=== PATIENT | male | born 1960 | race African-American/Black ===

== ENCOUNTER 2016-10-20 07:01 | Day surgery (SDC) | payer MEDICARE, MEDICAID ==
[~2016-10-20] VITALS: Ht 175.3 cm; Wt 101.2 kg
[~2016-10-20 07:01] MED LIST: ASPI81CH4 PO; CITA10TA59 PO; DIVA500T53 PO; DONE10TA17 PO; GABA-498 PO; INSLANTI SC; INSU100I2 SC; OXYB5SYP4 PO
[2016-10-20] MEDS ORDERED: LIDOCAINE 2%HCL (LOCAL ANESTH.) INJ 20ML MDV ONE (07:08)
[2016-10-20] MEDS ORDERED: IODIXANOL 320MG/ML 100ML BTL IV ONE (07:08)
[2016-10-20] MEDS ORDERED: MIDAZOLAM HCL 1MG/1ML-2 ML VIAL ONE (07:54)
[2016-10-20] MEDS ORDERED: fentaNYL CITRATE 100 MCG/2 ML VL ONE (07:54)
[2016-10-20] MEDS ORDERED: VERAPAMIL 2.5MG/ML INJ 2ML VIAL IV ONE (07:55)
[2016-10-20] MEDS ORDERED: SODIUM CHL 0.9% 0 ML ONE (07:55)
[2016-10-20] MEDS ORDERED: ANGIOMAX 250 MG VIAL IV ONE (07:55)
[2016-10-20] MEDS ORDERED: EPTIFIBATIDE INJ (2MG/ML) 10ML VIAL IV ONE (07:56)
[2016-10-20] MEDS ORDERED: HEPARIN SODIUM (PORCINE) 5000 UNITS/ML 1ML VIAL ONE ×2 (08:30)
[2016-10-20] MEDS ORDERED: ACETAMINOPHEN 325 MG TAB PO ONE ×2 (09:25→09:30)
[2016-10-20] MEDS ORDERED: hydrALAZINE HCL 20 MG/ML VL IV ONE (10:15)
== END 2016-10-20 11:36 | disposition home or self-care (01) ==
LOC: CATH 07:01
PROVIDERS: ATTEND Internal Medicine
DX: I25.10 Atherosclerotic heart disease of native coronary artery without angina pectoris (principal); G47.30 Sleep apnea, unspecified; E11.9 Type 2 diabetes mellitus without complications; N18.9 Chronic kidney disease, unspecified; Z95.0 Presence of cardiac pacemaker
CPT/HCPCS: 93458; C1769; J1644; J2250; J3010; J7030; Q9967

== ENCOUNTER 2019-02-02 10:39 | Emergency (ER) | payer MEDICARE, MEDICAID ==
[~2019-02-02] VITALS: Ht 180.3 cm; Wt 95.3 kg
[~2019-02-02 10:39] MED LIST changes: +CHOL20007 OR; +CITA10TA70 PO; +DONE10TA40 PO; -GABA-498 PO; +GABA100C9 PO; +GABA400C11 PO; +INSU1INJ13 SC; +INSUINJ18 SC; +OXYB15TA12 PO; +PRAV20TA3 PO; +TOPI25CA5 PO
[2019-02-02 11:29] LABS: Basophils # (auto) 0 uL; Eosinophils # (auto) 0.3 uL; Eosinophils % (auto) 5.9 % (0.0-7.0); Hematocrit 43.7 % (41.0-53.0); Hemoglobin 14.5 g/dL (13.5-17.5); Lymphocytes # (auto) 1.1 uL; Mean Corpuscular Hemoglobin 28.2 pg (28.0-32.0); Mean Corpuscular Hgb Conc. 33.2 g/dL (32.0-36.0); Mean Corpuscular Volume 84.9 fL (80.0-100.0); Monocytes # (auto) 0.6 uL; Monocytes % (auto) 11.9 % (0.0-12.0); Neutrophils # (auto) 2.9 uL; Neutrophils % (auto) 59.2 % (37.0-80.0); Nucleated Red Blood Cells % 0.1 %; Platelet Count (auto) 156 10^3/uL (140-450); Red Blood Cells 5.15 10^6/uL (4.5-5.90)
[2019-02-02] MEDS ORDERED: ONDANSETRON HCL 4 MG/2 ML VIAL IV ONE (11:45)
[2019-02-02] MEDS ORDERED: HYDROmorphone HCL 2 MG/ML VL IV ONE (11:45)
[2019-02-02 12:00] LABS: Alanine Aminotransferase 17 U/L (16-61); Albumin 3.3 g/dL (3.4-5.0); Anion Gap 6 (5-15); Aspartate Aminotransferase 10 U/L (15-37); BUN/Creatinine Ratio 11.9; Blood Urea Nitrogen 15 mg/dL (7-18); Carbon Dioxide 27 mmol/L (21-32); Chloride 106 mmol/L (98-107); GFR African American 75 mL/min; GFR Non-African American 62 mL/min; Glucose 161 mg/dL (74-106); Magnesium 2.1 mg/dL (1.6-2.6); Potassium 3.9 mmol/L (3.5-5.1); Sodium 139 mmol/L (136-145)
[2019-02-02 12:05] LABS: Alkaline Phosphatase 109 U/L (45-117); Bilirubin, Total 0.4 mg/dL (0.2-1.0); Total Protein 7.6 g/dL (6.4-8.2)
[2019-02-02 12:22] LABS: INR 1.03 (0.9-1.15); Partial Thromboplastin Time 25.4 sec (23.64-32.05)
[2019-02-02 12:30] VITALS: BP 107/72
== END 2019-02-02 14:29 | disposition home or self-care (01) ==
LOC: ER 10:39 → EDBD 10:39 → ER 14:29
DX: G43.909 Migraine, unspecified, not intractable, without status migrainosus (principal); E11.65 Type 2 diabetes mellitus with hyperglycemia; Z95.0 Presence of cardiac pacemaker
CPT/HCPCS: 36415; 70450; 80053; 83735; 84484; 85025; 85610; 85730; 96374; 96375; 99284; J1170; J2405

== ENCOUNTER 2019-08-02 18:27 | Emergency (ER) | payer MEDICARE, MEDICAID ==
[~2019-08-02] VITALS: Ht 175.3 cm; Wt 99.8 kg
[2019-08-02 18:48] VITALS: BP 126/83
== END 2019-08-02 22:43 | disposition left against medical advice (07) ==
LOC: EDUNIT# 18:27 → EDBD 18:27 → ER 18:32
DX: E16.2 Hypoglycemia, unspecified (principal); Z53.21 Procedure and treatment not carried out due to patient leaving prior to being seen by health care provider

== ENCOUNTER 2023-03-29 22:09 | Inpatient (IN) | payer MEDICARE, MEDICAID ==
[~2023-03-29] VITALS: Ht 175.3 cm; Wt 107.0 kg
[~2023-03-29 22:09] MED LIST changes: -ASPI81CH4 PO; +ASPI81CH74 PO; +CITA10TA5 PO; -CITA10TA59 PO; -CITA10TA70 PO; +CITA10TA8 PO; +DIVA500T3 PO; -DIVA500T53 PO; -DONE10TA17 PO; -DONE10TA40 PO; +DONE10TA9 PO; +DONE1TAB88 PO; +GABA-1251 PO; +GABA-1308 PO; -GABA100C9 PO; -GABA400C11 PO
[2023-03-29 22:48] LABS: Basophils # (auto) 0 10 ^3/uL (0-0.2); Basophils % (auto) 0.5 % (0.0-2.0); Eosinophils # (auto) 0.1 10 ^3/uL (0-0.8); Eosinophils % (auto) 1.9 % (0.0-7.0); Hematocrit 40.9 % (41.0-53.0); Hemoglobin 13.4 g/dL (13.5-17.5); Lymphocytes # (auto) 1.1 10 ^3/uL (0.4-5.4); Lymphocytes % (auto) 21.9 % (10.0-50.0); Mean Corpuscular Hemoglobin 27.8 pg (28.0-32.0); Mean Corpuscular Hgb Conc. 32.8 g/dL (32.0-36.0); Mean Corpuscular Volume 84.6 fL (80.0-100.0); Monocytes # (auto) 0.7 10 ^3/uL (0-1.3); Neutrophils # (auto) 3.3 10 ^3/uL (1.6-8.6); Neutrophils % (auto) 62.7 % (37.0-80.0); Nucleated Red Blood Cells % 0.1 %; Red Blood Cells 4.83 10^6/uL (4.5-5.90); Red Cell Distribution Width 14.7 % (11.8-14.3); White Blood Cell 5.2 10^3/uL (4.4-10.8)
[2023-03-29 22:57] VITALS: RESP 20; O2SAT 97
[2023-03-29 23:03] LABS: INR 1.1 (0.9-1.15); Partial Thromboplastin Time 27.3 SEC (24.5-34.5); Prothrombin Time 11.5 sec (9.3-11.8)
[2023-03-29 23:07] LABS: Alanine Aminotransferase 11 U/L (7-40); Alkaline Phosphatase 116 U/L (46-116); Anion Gap 3.8 (5-15); Aspartate Aminotransferase 15 U/L (13-40); BUN/Creatinine Ratio 7.3 (10.0-20.0); Blood Urea Nitrogen 12 mg/dL (9-23); Calcium 9.3 mg/dL (8.7-10.4); Carbon Dioxide 27.2 mmol/L (20-30); Chloride 105 mmol/L (98-107); Glucose 232 mg/dL (74-106); Magnesium 1.7 mg/dL (1.6-2.6); Potassium 4.5 mmol/L (3.5-5.1); Sodium 136 mmol/L (136-145)
[2023-03-29 23:08] LABS: Bilirubin, Total 0.4 mg/dL (0.2-1.0); Total Protein 7.4 g/dL (5.7-8.2)
[2023-03-29 23:49] LABS: Urine Bacteria NONE SEEN /hpf (None Seen); Urine Blood Negative /uL (Negative); Urine Clarity Clear (Clear); Urine Color Yellow (Yellow); Urine Protein, UAD Negative (Negative); Urine Specific Gravity 1.021 (1.001-1.035); Urine Urobilinogen Normal (Negative); Urine WBC 1 /hpf (0 - 3); Urine pH 5.5 (5.0-8.0)
[2023-03-30] MEDS ORDERED: DEXTROSE (50%) 50ML SYRG IV PRN (06:00)
[2023-03-30] MEDS: GABAPENTIN 400 MG CAP PO SCH ×3 (06:00→22:52)
[2023-03-30] MEDS ORDERED: ONDANSETRON HCL 4 MG/2 ML VIAL IV PRN (06:00)
[2023-03-30] MEDS ORDERED: ACETAMINOPHEN 325 MG TAB PO PRN (06:00)
[2023-03-30] MEDS ORDERED: NITROGLYCERIN 0.4 MG SL TAB SL PRN (06:00)
[2023-03-30] MEDS: InsuLIN REG 1unit/0.01ml Soln (100units/ml) SC SCH ×4 (07:00→23:09)
[2023-03-30] MEDS: ACCU-CHEK COMFORT CURVE STRIP VI SCH ×4 (07:08→23:06)
[2023-03-30 08:14] VITALS: PULSE 60; RESP 16; O2SAT 95
[2023-03-30] MEDS: ENOXAPARIN SOD 40 MG/0.4 ML SYRINGE SC SCH (10:24)
[2023-03-30] MEDS: amLODIPine BESYLATE 5 MG TAB PO SCH (10:24)
[2023-03-30] MEDS: ASPirin 81 mg TAB PO SCH (10:24)
[2023-03-30] MEDS: PANTOPRAZOLE 40 MG TAB PO SCH (10:25)
[2023-03-30] MEDS: TOPIRAMATE 25 MG TAB PO SCH (10:25)
[2023-03-30 12:16] LABS: Triglycerides 117 mg/dL (< 150)
[2023-03-30 12:17] LABS: LDL Cholesterol 113 mg/dL (< 100)
[2023-03-30 12:18] LABS: Cholesterol 163 mg/dL (< 200); HDL Cholesterol 27 mg/dL (40-59)
[2023-03-30] MEDS: TAMSULOSIN HYDROCHLORIDE 0.4 MG CAP PO SCH (18:11)
[2023-03-30 20:20] VITALS: PULSE 59; RESP 18; O2SAT 93
[2023-03-30] MEDS ORDERED: ATORVASTATIN 20 MG TAB PO SCH ×2 (22:00)
[2023-03-30] MEDS ORDERED: DONEPEZIL HYDROCHLORIDE 5 MG TAB PO SCH (22:00)
[2023-03-30 22:20] VITALS: BP 120/75; PULSE 55; RESP 20; TEMP 98; O2SAT 98
[2023-03-31 05:00] VITALS: BP 94/51; PULSE 58; RESP 20; TEMP 98.1
[2023-03-31] MEDS: GABAPENTIN 400 MG CAP PO SCH ×2 (07:00→13:28)
[2023-03-31] MEDS: ACCU-CHEK COMFORT CURVE STRIP VI SCH ×3 (07:01→17:00)
[2023-03-31] MEDS: InsuLIN REG 1unit/0.01ml Soln (100units/ml) SC SCH ×3 (07:01→17:00)
[2023-03-31 07:10] LABS: Alanine Aminotransferase 10 U/L (7-40); Albumin 3.6 g/dL (3.2-4.8); Alkaline Phosphatase 93 U/L (46-116); Anion Gap 6 (5-15); Aspartate Aminotransferase 11 U/L (13-40); BUN/Creatinine Ratio 8.3 (10.0-20.0); Bilirubin, Total 0.6 mg/dL (0.2-1.0); Blood Urea Nitrogen 12 mg/dL (9-23); Calcium 9.1 mg/dL (8.5-10.1); Carbon Dioxide 25 mmol/L (20-30); Chloride 105 mmol/L (98-107); Glucose 155 mg/dL (74-106); Potassium 3.9 mmol/L (3.5-5.1); Sodium 136 mmol/L (136-145); Total Protein 6.8 g/dL (5.7-8.2)
[2023-03-31 07:22] LABS: Basophils # (auto) 0 10 ^3/uL (0-0.2); Basophils % (auto) 0.4 % (0.0-2.0); Eosinophils # (auto) 0.1 10 ^3/uL (0-0.8); Eosinophils % (auto) 2.4 % (0.0-7.0); Hematocrit 39.5 % (41.0-53.0); Hemoglobin 13.2 g/dL (13.5-17.5); Lymphocytes # (auto) 0.9 10 ^3/uL (0.4-5.4); Lymphocytes % (auto) 20.5 % (10.0-50.0); Mean Corpuscular Hemoglobin 28.1 pg (28.0-32.0); Mean Corpuscular Hgb Conc. 33.5 g/dL (32.0-36.0); Mean Corpuscular Volume 83.8 fL (80.0-100.0); Monocytes # (auto) 0.6 10 ^3/uL (0-1.3); Neutrophils % (auto) 64.7 % (37.0-80.0); Nucleated Red Blood Cells % 0.2 %; Red Blood Cells 4.72 10^6/uL (4.5-5.90); Red Cell Distribution Width 14.4 % (11.8-14.3); White Blood Cell 4.6 10^3/uL (4.4-10.8)
[2023-03-31 08:00] VITALS: PULSE 66; PULSE 70; RESP 18; O2SAT 96
[2023-03-31 09:00] VITALS: BP 118/70; PULSE 66; RESP 18; TEMP 98.3; O2SAT 96
[2023-03-31] MEDS: amLODIPine BESYLATE 5 MG TAB PO SCH (10:13)
[2023-03-31] MEDS: ASPirin 81 mg TAB PO SCH (10:13)
[2023-03-31] MEDS: PANTOPRAZOLE 40 MG TAB PO SCH (10:13)
[2023-03-31] MEDS: TOPIRAMATE 25 MG TAB PO SCH (10:13)
[2023-03-31] MEDS: ENOXAPARIN SOD 40 MG/0.4 ML SYRINGE SC SCH (10:13)
[2023-03-31 13:00] VITALS: BP 108/60; PULSE 62; RESP 18; TEMP 98.2
[2023-03-31 17:00] VITALS: BP 126/53; PULSE 62; RESP 18; TEMP 98.3; O2SAT 98
[2023-03-31] MEDS: TAMSULOSIN HYDROCHLORIDE 0.4 MG CAP PO SCH (18:00)
== END 2023-03-31 18:25 | disposition left against medical advice (07) | DRG 311 ==
LOC: EDBD 22:09 → ER 22:09 → TELE 03-30 06:05 → TELE-EAST 03-30 21:45
PROVIDERS: ADMIT Nurse Practitioner; ATTEND Nurse Practitioner Acute Care
DX: I24.9 Acute ischemic heart disease, unspecified (principal); I47.1 Supraventricular tachycardia; N18.9 Chronic kidney disease, unspecified; R00.1 Bradycardia, unspecified; E66.9 Obesity, unspecified; E78.5 Hyperlipidemia, unspecified; F03.90 Unspecified dementia, unspecified severity, without behavioral disturbance, psychotic disturbance, mood disturbance, and anxiety; E11.22 Type 2 diabetes mellitus with diabetic chronic kidney disease; I25.119 Atherosclerotic heart disease of native coronary artery with unspecified angina pectoris; I13.10 Hypertensive heart and chronic kidney disease without heart failure, with stage 1 through stage 4 chronic kidney disease, or unspecified chronic kidney disease; Z53.29 Procedure and treatment not carried out because of patient's decision for other reasons; Z88.6 Allergy status to analgesic agent; Z80.6 Family history of leukemia; Z83.2 Family history of diseases of the blood and blood-forming organs and certain disorders involving the immune mechanism; Z82.3 Family history of stroke; Z95.0 Presence of cardiac pacemaker; Z68.34 Body mass index [BMI] 34.0-34.9, adult; Y92.89 Other specified places as the place of occurrence of the external cause
CPT/HCPCS: 36415; 71045; 80053; 80061; 81001; 82962; 83036; 83735; 83880; 84484; 85025; 85610; 85730; 93005; 93306; 96372; G0378; J1815

== ENCOUNTER 2023-04-02 11:40 | Emergency (ER) | payer MEDICARE, MEDICAID ==
[~2023-04-02] VITALS: Ht 175.3 cm; Wt 102.3 kg
[~2023-04-02 11:40] MED LIST changes: -CITA10TA5 PO; -DONE10TA9 PO; -GABA-1308 PO; -INSUINJ18 SC; -OXYB5SYP4 PO
[2023-04-02] MEDS ORDERED: SODIUM CHLORIDE 0.9% 1,000 ML IV ONE (12:00)
[2023-04-02 12:14] VITALS: PULSE 65; RESP 18; O2SAT 94
[2023-04-02 12:31] VITALS: BP 101/63; RESP 18; TEMP 98.2; O2SAT 94
[2023-04-02 12:39] LABS: Alanine Aminotransferase 21 U/L (7-40); Alkaline Phosphatase 103 U/L (46-116); Anion Gap 7 (5-15); Aspartate Aminotransferase 20 U/L (13-40); BUN/Creatinine Ratio 10.3 (10.0-20.0); Blood Urea Nitrogen 18 mg/dL (9-23); Calcium 9.2 mg/dL (8.7-10.4); Carbon Dioxide 27 mmol/L (20-30); Chloride 107 mmol/L (98-107); Glucose 90 mg/dL (74-106); Potassium 3.9 mmol/L (3.5-5.1); Sodium 141 mmol/L (136-145)
[2023-04-02 12:40] LABS: Bilirubin, Total 0.5 mg/dL (0.2-1.0)
[2023-04-02 12:42] VITALS: PULSE 61
[2023-04-02 12:44] LABS: Basophils # (auto) 0 10 ^3/uL (0-0.2); Basophils % (auto) 0.3 % (0.0-2.0); Eosinophils # (auto) 0.1 10 ^3/uL (0-0.8); Eosinophils % (auto) 1.5 % (0.0-7.0); Hematocrit 40.4 % (41.0-53.0); Hemoglobin 13.4 g/dL (13.5-17.5); Lymphocytes # (auto) 1.1 10 ^3/uL (0.4-5.4); Mean Corpuscular Hemoglobin 27.7 pg (28.0-32.0); Mean Corpuscular Hgb Conc. 33.1 g/dL (32.0-36.0); Mean Corpuscular Volume 83.6 fL (80.0-100.0); Monocytes # (auto) 0.7 10 ^3/uL (0-1.3); Monocytes % (auto) 10.9 % (0.0-12.0); Neutrophils # (auto) 4.1 10 ^3/uL (1.6-8.6); Neutrophils % (auto) 69.3 % (37.0-80.0); Nucleated Red Blood Cells % 0.1 %; Red Blood Cells 4.84 10^6/uL (4.5-5.90); Red Cell Distribution Width 14.7 % (11.8-14.3)
== END 2023-04-02 13:29 | disposition home or self-care (01) ==
LOC: ER 11:40 → EDBD 11:40 → ER 13:29
DX: T67.5XXA Heat exhaustion, unspecified, initial encounter (principal); I10 Essential (primary) hypertension; E11.9 Type 2 diabetes mellitus without complications; Z95.0 Presence of cardiac pacemaker; Z79.4 Long term (current) use of insulin; Z79.82 Long term (current) use of aspirin; Z79.899 Other long term (current) drug therapy; Z88.5 Allergy status to narcotic agent; X58.XXXA Exposure to other specified factors, initial encounter; Y93.89 Activity, other specified; Y92.89 Other specified places as the place of occurrence of the external cause; Y99.8 Other external cause status
CPT/HCPCS: 36415; 80053; 84484; 85025; 93005; 96360; 99284; J7030

== ENCOUNTER 2023-04-04 07:22 | Day surgery (SDC) | payer MEDICARE, MEDICAID ==
[~2023-04-04] VITALS: Ht 175.3 cm; Wt 103.4 kg
[2023-04-04] VITALS (10 sets, daily range): BP systolic 136–151; BP diastolic 77–87; PULSE 51–64; RESP 12–16; TEMP 97.2; O2SAT 94–100
[2023-04-04] MEDS ORDERED: HEPARIN SODIUM (PORCINE) 5000 UNITS/ML 1ML VIAL ONE (08:45)
[2023-04-04] MEDS ORDERED: VERAPAMIL 2.5MG/ML INJ 2ML VIAL IV ONE (08:45)
[2023-04-04] MEDS ORDERED: ANGIOMAX 250 MG VIAL IV ONE (08:45)
[2023-04-04] MEDS ORDERED: LIDOCAINE 2%HCL (LOCAL ANESTH.) INJ 20ML MDV ONE (08:46)
[2023-04-04] MEDS ORDERED: SODIUM CHL 0.9% 50 ML ONE (08:46)
[2023-04-04] MEDS ORDERED: fentaNYL CITRATE 100 MCG/2 ML VL ONE (08:46)
[2023-04-04] MEDS ORDERED: IODIXANOL 320MG/ML 100ML BTL IV ONE ×2 (08:46→09:08)
[2023-04-04] MEDS ORDERED: MIDAZOLAM HCL 2MG/2ML 2ml VIAL (1mg/ml) ONE (08:46)
[2023-04-04] MEDS ORDERED: DONE23TA PO (08:55)
[2023-04-04] MEDS ORDERED: TOPI25TA43 PO (08:55)
[2023-04-04] MEDS ORDERED: TAMS-35 PO (08:55)
[2023-04-04] MEDS ORDERED: INSU100I33 SC (08:55)
[2023-04-04] MEDS ORDERED: CITA10TA8 PO (08:55)
[2023-04-04] MEDS ORDERED: METO25TA36 PO (08:55)
[2023-04-04] MEDS ORDERED: ASPirin 81 mg TAB ONE ×2 (09:27→09:31)
[2023-04-04] MEDS ORDERED: TICAGRELOR 90 MG TAB ONE (09:27)
== END 2023-04-04 12:12 | disposition home or self-care (01) ==
LOC: CATH 07:22
PROVIDERS: ATTEND Internal Medicine
DX: I25.10 Atherosclerotic heart disease of native coronary artery without angina pectoris (principal); I21.4 Non-ST elevation (NSTEMI) myocardial infarction; I47.20 Ventricular tachycardia, unspecified; I10 Essential (primary) hypertension; Z79.899 Other long term (current) drug therapy; Z79.82 Long term (current) use of aspirin
CPT/HCPCS: 93458; C1725; C1769; C1874; C1887; C1894; C9600; J0583; J1644; J2250; J3010; Q9967; 99152

== ENCOUNTER 2023-08-16 01:20 | Inpatient (IN) | payer MEDICARE, MEDICAID ==
[~2023-08-16] VITALS: Ht 175.3 cm; Wt 91.0 kg
[~2023-08-16 01:20] MED LIST changes: -DIVA500T3 PO; -DONE1TAB88 PO; +DONE23TA PO; -INSLANTI SC; -INSU100I2 SC; +METO25TA36 PO; +TAMS-35 PO; -TOPI25CA5 PO; +TOPI25TA43 PO
[2023-08-16 02:19] LABS: Chloride 107 mmol/L (98-107); Potassium 3.6 mmol/L (3.5-5.1); Sodium 140 mmol/L (136-145)
[2023-08-16 02:20] LABS: Anion Gap 4 (5-15); Calcium 9.5 mg/dL (8.7-10.4); Carbon Dioxide 29 mmol/L (20-30)
[2023-08-16 02:25] LABS: BUN/Creatinine Ratio 8.3 (10.0-20.0); Blood Urea Nitrogen 13 mg/dL (9-23)
[2023-08-16 02:35] VITALS: PULSE 54; RESP 12; O2SAT 95
[2023-08-16 02:37] LABS: Basophils # (auto) 0 10 ^3/uL (0-0.2); Basophils % (auto) 0.6 % (0.0-2.0); Eosinophils # (auto) 0.2 10 ^3/uL (0-0.8); Eosinophils % (auto) 4.2 % (0.0-7.0); Hematocrit 38.2 % (41.0-53.0); Hemoglobin 12.4 g/dL (13.5-17.5); Lymphocytes # (auto) 1.1 10 ^3/uL (0.4-5.4); Lymphocytes % (auto) 23.9 % (10.0-50.0); Mean Corpuscular Hemoglobin 27.5 pg (28.0-32.0); Mean Corpuscular Hgb Conc. 32.5 g/dL (32.0-36.0); Mean Corpuscular Volume 84.7 fL (80.0-100.0); Monocytes # (auto) 0.8 10 ^3/uL (0-1.3); Monocytes % (auto) 16.6 % (0.0-12.0); Neutrophils # (auto) 2.6 10 ^3/uL (1.6-8.6); Neutrophils % (auto) 54.7 % (37.0-80.0); Nucleated Red Blood Cells % 0.1 %; Red Blood Cells 4.51 10^6/uL (4.5-5.90); Red Cell Distribution Width 14.7 % (11.8-14.3); White Blood Cell 4.8 10^3/uL (4.4-10.8)
[2023-08-16 02:43] LABS: Glucose 35 mg/dL (74-106)
[2023-08-16] MEDS ORDERED: DEXTROSE 10% 1,000 ML IV ONE (03:45)
[2023-08-16] MEDS ORDERED: NITROGLYCERIN 0.4 MG SL TAB SL PRN (06:15)
[2023-08-16] MEDS ORDERED: ONDANSETRON HCL 4 MG/2 ML VIAL IV PRN (06:15)
[2023-08-16] MEDS ORDERED: ACETAMINOPHEN 325 MG TAB PO PRN (06:15)
[2023-08-16 07:45] VITALS: PULSE 60; RESP 12; O2SAT 96
[2023-08-16 09:34] VITALS: BP 136/83; PULSE 63; RESP 12; TEMP 98; O2SAT 96
[2023-08-16] MEDS ORDERED: CITALOPRAM HYDROBR 20 MG TAB PO SCH (10:00)
[2023-08-16] MEDS ORDERED: DONEPEZIL HYDROCHLORIDE 5 MG TAB PO SCH ×2 (10:00)
[2023-08-16] MEDS ORDERED: TICAGRELOR 60 MG TAB PO SCH (10:00)
[2023-08-16] MEDS ORDERED: METOPROLOL SUCCINATE XL 50 MG TAB PO SCH (10:00)
[2023-08-16] MEDS ORDERED: TAMSULOSIN HYDROCHLORIDE 0.4 MG CAP PO SCH (18:00)
[2023-08-16] MEDS ORDERED: ATORVASTATIN 20 MG TAB PO SCH (22:00)
== END 2023-08-16 09:45 | disposition left against medical advice (07) | DRG 637 ==
LOC: EDBD 01:20 → ER 01:20 → TELE 06:15
PROVIDERS: ADMIT Nurse Practitioner; ATTEND Nurse Practitioner
DX: E11.649 Type 2 diabetes mellitus with hypoglycemia without coma (principal); G93.41 Metabolic encephalopathy; F03.90 Unspecified dementia, unspecified severity, without behavioral disturbance, psychotic disturbance, mood disturbance, and anxiety; E78.5 Hyperlipidemia, unspecified; I12.9 Hypertensive chronic kidney disease with stage 1 through stage 4 chronic kidney disease, or unspecified chronic kidney disease; E11.22 Type 2 diabetes mellitus with diabetic chronic kidney disease; N18.9 Chronic kidney disease, unspecified; Z53.29 Procedure and treatment not carried out because of patient's decision for other reasons; Z86.73 Personal history of transient ischemic attack (TIA), and cerebral infarction without residual deficits; Z95.0 Presence of cardiac pacemaker; Z88.5 Allergy status to narcotic agent; Z79.899 Other long term (current) drug therapy; Z79.4 Long term (current) use of insulin
CPT/HCPCS: 36415; 70450; 80048; 82962; 85025; 93005; 96360; 99291; G0378